=== PATIENT | female | born 1970 | race Caucasian/White ===

== ENCOUNTER 2020-05-27 20:14 | Emergency (ER) | payer BC ==
[2020-05-27] MEDS ORDERED: Sodium Chloride 0.9% 10 ML Syringe FLUSH PRN (20:35)
[2020-05-27] MEDS ORDERED: Metoclopramide 10 MG/2 ML SDV IVPUSH ONE (20:35)
[2020-05-27] MEDS ORDERED: Ketorolac 30 MG/ML SDV IVPUSH ONE (20:35)
[2020-05-27] MEDS ORDERED: Sodium Chloride 0.9% 1,000 ML IV ONE (20:35)
--- NOTE | 2020-05-27 20:47 | EDM.PDOC ---
ED HPI GENERAL MEDICAL PROBLEM - General Chief Complaint: Abdominal Pain Stated Complaint: Abdominal Pain Time Seen by Provider: 05/27/20 20:25 Source of Information: Reports: Patient - History of Present Illness INITIAL COMMENTS - FREE TEXT/NARRATIVE: Barbra is a 50 y/o female who comes to the ER with complaints of abdominal discomfort and diarrhea that she has had since Saturday night. She reports feeli ng quite weak and tired and thinks she passed out on the toilet last night at home. She has had some Zofran at home. She thinks she has been having small frequent bouts of diarrhea. Tonight she started to have more epigastric pain. - Related Data Allergies Allergy/AdvReac Type Severity Reaction Status Date / Time meperidine HCl [From Demerol] Allergy Rash Verified 05/27/20 22:05 prochlorperazine edisylate Allergy Cannot Verified 05/27/20 22:05 [From Compazine] Remember Home Meds: Home Meds B12/Levomefolate Calcium/B-6 [Folbic Rf Tablet] 1 each PO DAILY 04/24/14 [History] Calcium Carb & Citrate/Vit D3 [Calcium + Vitamin D3 Caplet] 1 each PO BID 04/24/14 [History] Levothyroxine Sodium [Synthroid] 1 tab PO DAILY 04/24/14 [History] Multivitamin [Multivitamins] 1 cap PO DAILY 04/24/14 [History] Vitamin B Complex 100 NO.2 [B100 Balanced] 100 mg PO DAILY 04/24/14 [History] Abatacept [Orencia] 1 unit SQ WEEKLY 03/09/16 [History] ondansetron HCL [Ondansetron] 4 mg PO Q4HR PRN 03/09/16 [History] traZODone 150 mg PO BEDTIME 03/09/16 [History] Acetaminophen [Tylenol Extra Strength] 1 - 2 tab PO Q4H PRN 09/08/18 [History] Cholecalciferol (Vitamin D3) [Vitamin D3] 1,000 units PO DAILY 09/08/18 [History] Lidocaine 2% [Xylocaine 2% Viscous] 15 ml .XX Q4H PRN 09/08/18 [History] diphenhydrAMINE HCL [Unisom] 50 mg PO BEDTIME PRN 09/08/18 [History] Diphenoxylate HCl/Atropine [Lomotil] 1 tab PO Q6H PRN 5 Days #20 tablet 05/27/20 [Rx] Metoclopramide HCl [Reglan] 10 mg PO Q6HR 5 Days #20 tablet 05/27/20 [Rx] Omeprazole Magnesium [Prilosec Otc] 20 mg PO DAILY 05/27/20 [History] Past Medical History Gastrointestinal History: Reports: GERD, Hemorrhoids PRODUCTION ASSEMBLY 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 (See Below) Other PRODUCTION ASSEMBLY OPERATOR History: Hysterectomy Musculoskeletal History: Reports: RA Neurological History: Reports: None Psychiatric History: Reports: None Endocrine/Metabolic History: Reports: Hypothyroidism Hematologic History: Reports: Anemia, Iron Deficiency Oncologic (Cancer) History: Reports: Other (See Below) Other Oncologic History: laryngeal Dermatologic History: Reports: None - Past Surgical History HEENT Surgical History: Reports: Adenoidectomy, Tonsillectomy GI Surgical History: Reports: Bariatric Procedure, Small Bowel Other GI Surgeries/Procedures: Bowel OBST X2 Neurological Surgical History: Reports: None Musculoskeletal Surgical History: Reports: Other (See Below) Other Musculoskeletal Surgeries/Procedures:: Torn achilles tendon with repair Review of Systems - Review of Systems Review Of Systems: See Below Constitutional: Reports: No Symptoms, Weakness Ears: Reports: No Symptoms Nose: Reports: No Symptoms Mouth/Throat: Reports: No Symptoms Respiratory: Reports: No Symptoms Cardiovascular: Reports: No Symptoms GI/Abdominal: Reports: Abdominal Pain, Decreased Appetite, Diarrhea, Nausea Genitourinary: Reports: No Symptoms Musculoskeletal: Reports: No Symptoms Skin: Reports: No Symptoms Neurological: Reports: No Symptoms Psychiatric: Reports: No Symptoms ED EXAM, GENERAL - Physical Exam Exam: See Below Exam Limited By: No Limitations General Appearance: Alert, WD/WN, No Apparent Distress (Adult female, appears to not feel well) Ears: Hearing Grossly Normal Nose: Normal Inspection, Normal Mucosa Throat/Mouth: Normal Lips, Normal Teeth, Normal Oropharynx, Normal Voice Head: Atraumatic, Normocephalic Neck: Normal Inspection Respiratory/Chest: No Respiratory Distress, Lungs Clear, Normal Breath Sounds, C hest Non-Tender Cardiovascular: Normal Peripheral Pulses, Regular Rate, Rhythm, No Murmur GI/Abdominal: Normal Bowel Sounds, Soft, Tender (RUQ/Epigastrum) (Female) Exam: Deferred Rectal (Female) Exam: Deferred Back Exam: Normal Inspection Extremities: Normal Inspection, Normal Range of Motion, Normal Capillary Refill Neurological: Alert, Oriented, CN II-XII Intact Psychiatric: Normal Affect, Normal Mood Skin Exam: Warm, Dry, Intact, Normal Color Course - Vital Signs Text/Narrative:: The patient was seen by the [employer] OPERATOR. Labs ordered. She was given a liter of NS of Reglan 20 gm IVP. Labs reviewed. CT of Abd/Pelvic W Contrast ordered. Patient feeling somewhat better after Reglan and IV fluids. Discussed CT results with patient. Will have her monitor her sx. Sent with Rx for Reglan and Lomotil. Will have her see her PCP next week on Saturday or Saturday. She was given discharge instructions and left the ER in stable condition. - Orders/Labs/Meds Orders: Active Orders 24 hr Category Date Time Status Abdomen Pelvis w Cont [CT] Stat Exams 05/27/20 21:27 Taken Sodium Chloride 0.9% [Saline Flush] Med 05/27/20 20:35 Active 10 ml FLUSH ASDIRECTED PRN Saline Lock Insert [OM.PC] Stat Oth 05/27/20 20:35 Ordered Medication Orders Sodium Chloride (Saline Flush) 10 ml FLUSH ASDIRECTED PRN PRN Reason: Keep Vein Open Labs: Laboratory Tests 05/27/20 05/27/20 05/27/20 Range/Units 20:20 20:20 21:10 WBC 5.3 (4.0-10.0) x10^3/uL RBC 4.02 (4.00-5.50) x10^6/uL Hgb 12.4 (12.0-16.0) g/dL Hct 36.0 (33.0-47.0) % MCV 89.6 (78.0-93.0) fL MCH 30.8 (26.0-32.0) pg MCHC 34.4 (32.0-36.0) g/dL RDW Coeff of Phil 12.4 (10.0-15.0) % Plt Count 239 (130-400) x10^3/uL Neut % (Auto) 56.7 (50.0-80.0) % Lymph % (Auto) 17.1 L (25.0-50.0) % Millard % (Auto) 23.7 H (2.0-11.0) % Eos % (Auto) 1.7 (0.0-4.0) % Baso % (Auto) 0.8 (0.2-1.2) % Sodium 141 (136-145) mmol/L Potassium 3.6 (3.5-5.1) mmol/L Chloride 108 H (98-107) mmol/L Carbon Dioxide 25 (21-32) mmol/L Anion Gap 11.6 (10-20) mmol/L BUN 11 (7-18) mg/dL Creatinine 0.8 (0.55-1.02) mg/dL Est Cr Clr Drug Dosing 71.84 mL/min Estimated GFR (MDRD) > 60 Glucose 80 (74-106) mg/dL Calcium 8.5 (8.5-10.1) mg/dL Corrected Calcium 9.06 (8.5-10.1) mg/dL Magnesium 1.5 L (1.8-2.4) mg/dL Total Bilirubin 0.3 (0.2-1.0) mg/dL AST 15 (15-37) U/L ALT 18 (14-59) U/L Alkaline Phosphatase 89 (46-116) U/L Total Protein 6.1 L (6.4-8.2) g/dL Albumin 3.3 L (3.4-5.0) g/dL Globulin 2.8 Albumin/Globulin Ratio 1.18 Amylase 53 (25-115) U/L Lipase 246 (73-393) U/L Urine Color Yellow (YELLOW) Urine Appearance Clear (CLEAR) Urine pH 5.5 (5.0-8.0) Ur Specific [place] 1.020 Urine Protein Negative (NEGATIVE) mg/dL Urine Glucose (UA) Negative (NEGATIVE) mg/dL Urine Ketones Negative (NEGATIVE) mg/dL Urine Occult Blood Negative (NEGATIVE) Urine Nitrite Negative (NEGATIVE) Urine Bilirubin Negative (NEGATIVE) Urine Urobilinogen 0.2 (0.2) EU/dL Ur Leukocyte Esterase Negative (NEGATIVE) Meds: Medications Generic Name Dose Route Start Last Admin Trade Name Freq PRN Reason Stop Dose Admin Sodium Chloride 10 ml 05/27/20 20:35 Saline Flush FLUSH ASDIRECTED PRN Keep Vein Open Discontinued Medications Generic Name Dose Route Start Last Admin Trade Name Freq PRN Reason Stop Dose Admin Sodium Chloride 1,000 mls @ 999 mls/hr 05/27/20 20:35 05/27/20 20:56 Normal Saline IV 05/27/20 21:35 999 mls/hr ONETIME ONE Administration Iopamidol 100 ml 05/27/20 21:33 05/27/20 21:44 Isovue-300 (61%) IVPUSH 05/27/20 21:34 100 ml ONETIME ONE Administration Ketorolac Tromethamine 30 mg 05/27/20 20:35 05/27/20 20:57 Toradol IVPUSH 05/27/20 20:36 30 mg ONETIME ONE Administration Metoclopramide HCl 20 mg 05/27/20 20:35 05/27/20 21:00 Reglan IVPUSH 05/27/20 20:36 20 mg ONETIME ONE Administration - Radiology Interpretation Free Text/Narrative:: CT Abd/pelvis W=distended gallbaldder with stones, CBD dilated to 1.0cm, no obstruction.M Mild intrahepatic biliary ductal dilation noted (See final report) Departure - Departure Time of Disposition: 22:26 Disposition: Home, Self-Care 01 Condition: Good Clinical Impression: Diarrhea Qualifiers: Diarrhea type: unspecified type Qualified Code(s): R19.7 - Diarrhea, unspecified Abdominal pain Qualifiers: Abdominal location: right upper quadrant Qualified Code(s): R10.11 - Right upper quadrant pain - Discharge Information *PRESCRIPTION DRUG MONITORING PROGRAM REVIEWED*: Not Applicable *COPY OF PRESCRIPTION DRUG MONITORING REPORT IN PATIENT TRISH: Not Applicable Prescriptions: Diphenoxylate HCl/Atropine [Lomotil] 1 tab PO Q6H PRN 5 Days #20 tablet PRN Reason: Diarrhea Metoclopramide HCl [Reglan] 10 mg PO Q6HR 5 Days #20 tablet Instructions: Diarrhea, Adult Referrals: Helena Moise MD [Primary Care Provider] - Forms: ED Department Discharge Additional Instructions: -Reglan 10mg oral every 6 hours as needed for nausea #20(Rx) -Lomotil 2 tab every 6 hours as needed for 1-2 days then 1 tab as needed every 6 hours if needed the following days for loose stools #20(Rx) -Rest as able -Stay hydrated -Monitor your sx and return if pain or fever is worse -Follow up with your PCP on Saturday or Saturday -Return to the ER as needed - My Orders Last 24 Hours: My Active Orders 05/27/20 20:35 Sodium Chloride 0.9% [Saline Flush] 10 ml FLUSH ASDIRECTED PRN Saline Lock Insert [OM.PC] Stat 05/27/20 21:27 Abdomen Pelvis w Cont [CT] Stat - Assessment/Plan Last 24 Hours: My Active Orders 05/27/20 20:35 Sodium Chloride 0.9% [Saline Flush] 10 ml FLUSH ASDIRECTED PRN Saline Lock Insert [OM.PC] Stat 05/27/20 21:27 Abdomen Pelvis w Cont [CT] Stat
[2020-05-27 20:56] LABS: CHLORIDE,CL 108 mmol/L (98-107); SODIUM,NA 141 mmol/L (136-145)
[2020-05-27 20:57] LABS: ANION GAP 11.6 mmol/L (10-20)
[2020-05-27] MEDS ORDERED: Iopamidol 612 MG/ML 100 ML Bottle IVPUSH ONE (21:33)
[2020-05-27 22:24] VITALS: BP 143/82; PULSE 82
[2020-05-27] MEDS ORDERED: Atropine/Diphenoxylate 0.025-2.5 MG Tab PO PRN (22:28)
--- NOTE | 2020-05-28 14:00 | CT ---
[id number] CT/CT Abdomen Pelvis W IV EXAM: CT Abdomen Pelvis W IV CLINICAL DATA: DIARRHEA AND RUQ/EPIGASTRIC PAIN. COMPARISON STUDY: August 2018. FINDINGS: Cholelithiasis with gallbladder distention. Mild amount of pericholecystic fluid. Additionally there is dilation of the intra and extra hepatic bile duct the level of the ampulla. Pancreatic duct is also dilated. No radiographically evident choledocholithiasis. No focal hepatic lesion. Spleen, adrenal glands, and kidneys are unremarkable. No evidence of urinary tract obstruction. Small bowel is fluid-filled. Findings nonspecific but can be seen with enteritis and/or diarrhea. Postsurgical change in the bowel. No evidence of obstruction. Spondylosis, including advanced L2-3 degenerative disc disease. Bilateral sacroiliac and femoroacetabular osteoarthritis. IMPRESSION: Markedly dilated and distended gallbladder with cholelithiasis. Correlate for acute cholecystitis. Additionally there is dilation of the intrahepatic and extra hepatic bile ducts and main pancreatic duct the level of the ampulla. No radiographically evident obstructing stone or mass. Surgical consultation recommended. Jaison Watkins MD 05/28/20 [id number] Thank you for allowing us to participate in the care of your patient.
== END 2020-05-27 22:46 | disposition home or self-care (01) ==
LOC: VM.ED 20:14 → SUPCPDRO 20:14 → VM.ED 22:46
DX: K80.00 Calculus of gallbladder with acute cholecystitis without obstruction (principal); R19.7 Diarrhea, unspecified; K21.9 Gastro-esophageal reflux disease without esophagitis; M06.9 Rheumatoid arthritis, unspecified; E03.9 Hypothyroidism, unspecified; D50.9 Iron deficiency anemia, unspecified; Z98.84 Bariatric surgery status; Z79.899 Other long term (current) drug therapy; Z88.5 Allergy status to narcotic agent; Z88.6 Allergy status to analgesic agent
CPT/HCPCS: 74177; 80053; 81003; 82150; 83690; 83735; 85025; 96361; 96374; 96375; 99284; J1885; J2765; J7030; Q9967

== ENCOUNTER 2022-04-27 20:01 | Emergency (ER) | payer BC ==
[2022-04-27] MEDS ORDERED: Sodium Chloride 0.9% 10 ML Syringe FLUSH PRN (20:30)
[2022-04-27] MEDS ORDERED: Lactated Ringers 1,000 ML IV ONE (20:31)
[2022-04-27] MEDS ORDERED: Ondansetron 4 MG/2 ML SDV IVPUSH ONE (20:31)
[2022-04-27] MEDS ORDERED: GI Cocktail Oral Solution 30 ML PO ONE (20:31)
[2022-04-27] MEDS ORDERED: HYDROmorphone 1 MG/ML Syringe IVPUSH ONE ×2 (20:31→23:11)
[2022-04-27 21:08] LABS: PTT,PARTIAL THROMBOPLSTIN TIME 26.1 SEC (20.5-30.9)
[2022-04-27 21:12] LABS: CHLORIDE,CL 96 mmol/L (98-107); SODIUM,NA 133 mmol/L (136-145)
[2022-04-27 21:13] LABS: ANION GAP 10.8 mmol/L (5-15); ESTIMATED GFR > 60
[2022-04-27] MEDS ORDERED: Iopamidol 612 MG/ML 100 ML Bottle IVPUSH ONE (22:02)
[2022-04-27] MEDS ORDERED: Famotidine 20 MG/2 ML SDV IVPUSH ONE (22:07)
[2022-04-27] MEDS ORDERED: Metoclopramide 10 MG/2 ML SDV IVPUSH ONE (22:08)
[2022-04-27] MEDS ORDERED: Piperacillin/Tazobactam 3.375 GM in Sodium Chloride 0.9% 100 ML IV ONE (23:11)
[2022-04-27] MEDS ORDERED: Sodium Chloride 0.9% 1,000 ML IV SCH (23:30)
[2022-04-27 23:51] VITALS: BP 134/89; PULSE 73
== END 2022-04-28 00:17 | disposition short-term general hospital (02) ==
LOC: VM.ED 20:01
DX: K46.9 Unspecified abdominal hernia without obstruction or gangrene (principal); K21.9 Gastro-esophageal reflux disease without esophagitis; E03.9 Hypothyroidism, unspecified; E66.9 Obesity, unspecified; Z88.8 Allergy status to other drugs, medicaments and biological substances; Z88.5 Allergy status to narcotic agent; Z68.29 Body mass index [BMI] 29.0-29.9, adult
CPT/HCPCS: 36415; 74177; 80053; 82150; 83690; 83735; 84100; 85025; 85610; 85730; 86140; 96361; 96365; 96375; 96376; 99285; A9270; J1170; J2405; J2543; J2765; J3490; J7030; J7120; Q9967; 99284